=== PATIENT | female | born 1985 | race Caucasian/White ===

== ENCOUNTER 2016-12-11 15:37 | Inpatient (IN) | payer BC ==
[~2016-12-11] VITALS: Ht 177.8 cm; Wt 85.0 kg
[2016-12-11] VITALS (17 sets, daily range): BP systolic 109–154; BP diastolic 60–100; PULSE 67–85; TEMP 97.7–98.2
[~2016-12-11 15:37] MED LIST: MOTRIN 600600 MG/TAB PO; PERCOCET 325 MG1 TA2 PO; PRENATAL1 TA1; ZANTAC 7575 MG
[2016-12-11] MEDS ORDERED: PRILOSEC 20MG20 MG PO (16:20)
[2016-12-11] MEDS ORDERED: GLUCOPHAGE500 MG/TAB PO (16:21)
[2016-12-11 16:49] LABS: BASO % 0.2 % (0.0-2.0); EOS # 0.1 (0.0-0.7); EOS % 0.7 % (0-4.0); GRAN # 9.7 (1.4-6.5); GRAN % 71.3 % (42.2-75.2); HEMATOCRIT 34.1 % (37.0-47.0); HEMOGLOBIN 11.7 g/dl (12.5-16.0); LYMPH # 2.8 (1.2-3.4); LYMPH % 20.5 % (20.0-51.0); MEAN CELL VOLUME 92 fl (80.0-100.0); MEAN CORPUSCULAR HEMOGLOBIN 32 pg (27.0-31.0); MEAN CORPUSCULAR HGB CONC 34 g/dl (33.0-37.0); MEAN PLATELET VOLUME 11.1 fl (7.4-10.4); MONO # 0.9 (0.1-0.6); MONO % 6.9 % (1.7-9.3); PLATELET COUNT 254 K/mm3 (130-400); RED BLOOD COUNT 3.71 M/mm3 (4.10-5.30); REDCELL DISTRIBUTION WIDTH-CV 12.6 % (11.5-14.5); WHITE BLOOD COUNT 13.7 K/mm3 (4.8-10.8)
[2016-12-11 17:00] LABS: ADJUSTED CALCIUM 9.4 mg/dL (8.4-10.2); ALBUMIN 3.5 gm/dL (3.5-5.0); BILIRUBIN,TOTAL 0.5 mg/dL (0.0-1.0); CREATININE, serum 0.54 mg/dL (0.52-1.25); POTASSIUM 4.3 mmol/L (3.4-5.0); TOTAL PROTEIN 6.6 gm/dL (6.4-8.2)
[2016-12-11 18:00] LABS: PH 6 (5-8); SQUAMOUS EPITHELIAL 0-2 /hpf; URINE APPEARANCE Clear; URINE BACTERIA None Seen /hpf; URINE BILIRUBIN Negative (NEGATIVE); URINE BLOOD 1+ (NEGATIVE); URINE COLOR Yellow; URINE GLUCOSE Negative (NEGATIVE); URINE KETONE Negative (NEGATIVE); URINE RBC >50 /hpf; URINE UROBILINOGEN Negative (NEGATIVE)
[2016-12-12 03:30] VITALS: BP 122/64; PULSE 72; TEMP 98.1
[2016-12-12 09:15] VITALS: BP 110/70; PULSE 74; TEMP 98
[2016-12-12 17:00] VITALS: BP 123/77; PULSE 67; TEMP 98.6
[2016-12-12 20:27] VITALS: BP 122/69; PULSE 62; TEMP 98
[2016-12-13 07:30] VITALS: BP 124/78; PULSE 63; TEMP 98.2
[2016-12-13] MEDS ORDERED: IBU800 M1 PO (09:25)
[2016-12-13] MEDS ORDERED: PERCOCET 325 MG1 TA2 PO (09:25)
[2016-12-13] MEDS ORDERED: NEWMANS TOP (09:26)
== END 2016-12-13 11:35 | disposition home or self-care (01) | DRG 775 ==
LOC: LDRO 15:37 → LDR 15:40 → OB 15:40
PROVIDERS: Obstetrics & Gynecology
PROC: 10E0XZZ Delivery of Products of Conception, External Approach (ICD-10-PCS; principal; 2016-12-11)
PROC: 0KQM0ZZ Repair Perineum Muscle, Open Approach (ICD-10-PCS; 2016-12-11)
PROC: 0W8NXZZ Division of Female Perineum, External Approach (ICD-10-PCS; 2016-12-11)
DX: O13.4 Gestational [pregnancy-induced] hypertension without significant proteinuria, complicating childbirth (principal); O69.81X0 Labor and delivery complicated by cord around neck, without compression, not applicable or unspecified; O70.1 Second degree perineal laceration during delivery; O34.83 Maternal care for other abnormalities of pelvic organs, third trimester; E28.2 Polycystic ovarian syndrome; Z3A.38 38 weeks gestation of pregnancy; Z37.0 Single live birth
CPT/HCPCS: J2590; J7120